=== PATIENT | female | born 1960 ===

== ENCOUNTER 2017-09-28 11:58 | Emergency (ER) | payer MEDICAID ==
[2017-09-28 11:59] VITALS: BMI 21.7
[2017-09-28] MEDS ORDERED: Tdap Vaccine 0.5 ml Vial (10-64 yrs) IM ONE ×2 (13:31→14:07)
[2017-09-28] MEDS ORDERED: Bacitracin 500 Units/gm Oint Foilpak UD TOP STA (13:36)
--- NOTE | 2017-09-28 14:04 | ED PDOC ---
HPI: Wound Care - HPI Time Seen by Provider: 09/28/17 12:21 Chief Complaint (Nursing): Abnormal Skin Integrity Chief Complaint (Provider): Thumb injury History Per: Patient Exam Limitations: no limitations Onset/Duration Of Symptoms: Mins Current Symptoms Are (Timing): Still Present Location Of Injury: Right: Hand (thumb laceration) Quality Of Symptoms: Painful Additional Complaint(s): 57 y/o female with a history of diabetes, fibromyalgia, and hepatitis C presents to the ED for a thumb laceration. Patient reports she was cooking at home when she injured her right thumb using a cheese grater. She complains of localized pain and bleeding to the right thumb. Patient is right hand dominant. Tetanus is not UTD. PMD: none provided Past Medical History Reviewed: Historical Data, Nursing Documentation, Vital Signs Vital Signs: Last Vital Signs Temp 98.0 F 09/28/17 12:16 Pulse 85 09/28/17 12:16 Resp 16 09/28/17 12:16 BP 98/66 L 09/28/17 12:16 Pulse Ox 97 09/28/17 12:16 - Medical History PMH: Diabetes, Fibromyalgia, HTN, Hypercholesterolemia Denies: Chronic Kidney Disease - Surgical History Surgical History: (2) - Family History Family History: States: No Known Family Hx - Social History Current smoker - smoking cessation education provided: No Ex-Smoker (has not smoked in the last 12 months): No Alcohol: None Drugs: Denies - Immunization History Hx Tetanus Toxoid Vaccination: No - Home Medications Home Medications: Ambulatory Orders Medication Instructions Recorded Insulin Glargine, Recombina 11 units SUBCUT DAILY 07/04/15 [Lantus] Insulin Lispro [Humalog] 13 units SUBCUT BID 07/04/15 Lisinopril [Zestril] 2.5 mg PO DAILY 07/04/15 metFORMIN [glucOPHAGE] 1,000 mg PO BID 07/04/15 Bacitracin OINT 1 applic TOP BID #1 tube 09/28/17 - Allergies Allergies/Adverse Reactions: Allergies Allergy/AdvReac Type Severity Reaction Status Date / Time No Known Allergies Allergy Verified 07/04/15 11:54 Review of Systems ROS Statement: Except As Marked, All Systems Reviewed And Found Negative Skin: Positive for: Other (small laceration to the right thumb with localized pain and bleeding) Physical Exam - Reviewed Nursing Documentation Reviewed: Yes Vital Signs Reviewed: Yes - Physical Exam Comments: GENERAL APPEARANCE: Patient is awake, alert, oriented x 3, in mild painful distress. Skin: warm and dry, (+) dorsum right first PIP .5 cm V shaped abrasion, (+) active bleeding, (-) swelling, (-) tenderness, (-) ecchymosis Pulmonary: lungs clear, no rhonchi, no wheezing. Cardiac: regular rate and rhythm, no murmur, no gallop. Abdomen: soft, nontender. Extremities: no deformity, full range of motion, no tenderness. Full ROM of the digit, sensation intact with cap refill less than 2 seconds. - Laboratory Results Urine POC: Negative - ECG O2 Sat by Pulse Oximetry: 97 (RA) Pulse Ox Interpretation: Normal Medical Decision Making Medical Decision Making: Time: 13:40 Impression: Finger abrasion Plan: * Tetanus Shot * Bacitracin Topical * Wound dressing * Re-evaluation 1425 On re-evaluation, patient reports improvement of symptoms. On exam, patient remains AAOx3, in no acute distress. On exam, neck is supple, lungs CTA, cardiac RRR, neuro exam shows no focal findings. VSS, stable for discharge. Educated on wound care. Diagnostic results d/w the patient in great detail. Dx of thumb abrasion d/w the patient. Based on history, exam and diagnostic results plan will be for discharge and outpatient follow up. Advised to follow up with primary care physician in 1-2 days without fail for wound check. Return to the emergency room at any time for any new or worsening symptoms. Patient states she fully agrees with and understands discharge instructions. States that she agrees with the plan and disposition. Verbalized and repeated discharge instructions and plan. I have given the patient opportunity to ask any additional questions. Scribe Attestation: Documented by Ashlee Schmidt acting as a scribe Jessica Wiggins PA-C. Scribe Attestation: All medical record entries made by the Scribe were at my direction and personally dictated by me. I have reviewed the chart and agree that the record accurately reflects my personal performance of the history, physical exam, medical decision making, and the department course for this patient. I have also personally directed, reviewed, and agree with the discharge instructions and disposition. Disposition - Clinical Impression Clinical Impression: Finger abrasion - Patient ED Disposition Is Patient to be Admitted: No Counseled Patient/Family Regarding: Diagnosis, Need For Followup, Rx Given - Disposition Disposition: Routine/Home Disposition Time: 14:25 Condition: STABLE Additional Instructions: FOLLOW UP WITH PMD IN 1-2 DAYS FOR WOUND CHECK. RETURN TO ED WITH ANY NEW OR WORSENING SYMPTOMS. KEEP WOUND CLEAN AND DRY. APPLY THIN LAYER OF ANTIBIOTIC OINTMENT TWICE DAILY AFTER CLEANING WOUND. Prescriptions: Bacitracin OINT 1 applic TOP BID #1 tube Instructions: Skin Abrasions, Common Finger Injuries, Wound Care Forms: [facility] (Palestinian) Print Language: AUSTRALIAN
[2017-09-28 14:34] VITALS: BP 105/78; PULSE 80; RESP 15; TEMP 98.1; O2SAT 100
== END 2017-09-28 14:34 | disposition home or self-care (01) ==
LOC: H.ER 11:58
DX: S60.311A Abrasion of right thumb, initial encounter (principal); W26.0XXA Contact with knife, initial encounter; Y92.000 Kitchen of unspecified non-institutional (private) residence as the place of occurrence of the external cause; B19.20 Unspecified viral hepatitis C without hepatic coma; E11.9 Type 2 diabetes mellitus without complications; E78.00 Pure hypercholesterolemia, unspecified; I10 Essential (primary) hypertension; M79.7 Fibromyalgia; Z79.4 Long term (current) use of insulin; Z87.891 Personal history of nicotine dependence